=== PATIENT | female | born 1985 | race Caucasian/White ===

== ENCOUNTER 2019-03-12 11:08 | Emergency (ER) | payer MEDICAID, OTHER ==
[2019-03-12] MEDS: ONDANSETRON 4 MG INJ IV (11:50)
[2019-03-12] MEDS: SOD CHLORIDE 0.9% 1,000 ML IV (11:50)
[2019-03-12 11:51] LABS: ADD MAN DIFF? NO
[2019-03-12 11:54] LABS: WHITE BLOOD COUNT 6.4 10^3/ul (4.8-10.8)
[2019-03-12 11:54] LABS: BASOPHIL # 0.1 10^3/ul (0.0-0.1); BASOPHILS % 0.8 % (0.0-2.0); EOSINOPHILS # 0.1 10^3/ul (0.0-0.5); EOSINOPHILS % 0.8 % (0.0-7.0); HEMATOCRIT 36.8 % (37.0-47.0); HEMOGLOBIN 12.1 g/dl (12.0-16.0); LYMPHOCYTES # 2.9 10^3/ul (0.8-2.9); LYMPHOCYTES % 44.6 % (15.0-51.0); MEAN CORPUSCULAR HEMOGLOBIN 28.5 pg (29.0-33.0); MEAN CORPUSCULAR HGB CONC 32.9 g/dl (32.0-37.0); MEAN CORPUSCULAR VOLUME 86.6 fl (82.0-101.0); MEAN PLATELET VOLUME 11.6 fl (7.4-10.4); MONOCYTE # 0.4 10^3/ul (0.3-0.9); MONOCYTES % 6.6 % (0.0-11.0); NEUTROPHILS % 46.7 % (39.0-77.0); PLATELET COUNT 242 10^3/UL (140-415); RED BLOOD COUNT 4.25 10^6/ul (4.20-5.40); RED CELL DISTRIBUTION WIDTH 12.2 % (11.5-14.5)
[2019-03-12] MEDS: HYDROmorphONE 1 MG/ML SYG IV (11:57)
[2019-03-12 12:14] LABS: ANION GAP 11 (5-13); BLOOD UREA NITROGEN 4 mg/dl (7-20); CALCIUM 8.9 mg/dl (8.4-10.2); CARBON DIOXIDE 26 mmol/L (21-31); CHLORIDE 105 mmol/L (97-110); CREATININE 0.65 mg/dl (0.44-1.00); Estimated GFR > 60 mL/min (>60); GLUCOSE 125 mg/dl (70-220); POTASSIUM 3.8 mmol/L (3.5-5.1); SODIUM 142 mmol/L (135-144)
[2019-03-12 12:17] LABS: PARTIAL THROMBOPLASTIN TIME 29.6 Sec (23.0-35.0); PROTIME 13.3 Sec (11.9-14.9)
[2019-03-12] MEDS: LORAZEPAM 2 MG INJ IV (14:14)
== END 2019-03-12 17:01 | disposition home or self-care (01) ==
LOC: E/R 11:08
DX: G44.59 Other complicated headache syndrome (principal)
CPT/HCPCS: 70450; 70551; 80048; 81025; 84703; 85025; 85610; 85730; 96374; 96375; 99285-25